=== PATIENT | female | born 1950 | race African-American/Black ===

== ENCOUNTER 2017-06-21 11:10 | Inpatient (IN) ==
[2017-06-21] MEDS ORDERED: DILTIAZEM 50 MG/10 ML VIAL IV STA (11:58)
[2017-06-21] MEDS ORDERED: DILTIAZEM INJ 100 MG in SODIUM CHLORIDE 0.9% 100 ML IV SCH (12:00)
[2017-06-21] MEDS ORDERED: DILTIAZEM 100 MG VIAL.ADD IV ONE (12:17)
[2017-06-21] MEDS ORDERED: SODIUM CHLORIDE 0.9% 100 ML IV ONE (12:17)
[2017-06-21] MEDS ORDERED: DILTIAZEM 50 MG/10 ML VIAL IV ONE (12:17)
[2017-06-21 12:18] LABS: Basophils # 0.1 10*3/uL (0.0-0.2); Basophils % 0.4 % (0.0-0.8); Eosinophils # 0.2 10*3/uL (0.0-0.87); Eosinophils % 1.6 % (0.00-10.9); Hematocrit 40.9 VOL% (35.7-47.0); Hemoglobin 12.8 GM/DL (12.0-16.0); Immature Granulocytes % 0.5 %; Immature Granulocytes Absolute 0.08 #; Lymphocytes # 1.3 10*3/uL (1.4-4.0); Lymphocytes % 9.1 % (21.3-54.2); Mean Corpuscular HGB Conc 31.3 GM/DL (32-36); Mean Corpuscular Hemoglobin 28 PG (27-34); Mean Corpuscular Volume 88.7 FL (87-102); Mean Platelet Volume 9.6 FL (9.6-12.0); Monocytes # 0.6 10*3/uL (0.11-0.8); Monocytes % 4.1 % (1.7-12.7); Neutrophils # 12.4 10*3/uL (1.4-7.4); Neutrophils % 84.3 % (38.7-73.9); Platelet Count 412 T/CUMM (130-400); Red Blood Count 4.61 MC/CUMM (3.8-5.5); Red Cell Distribution Width 14.1 % (9.3-17.3); White Blood Count 14.8 T/CUMM (4-12)
[2017-06-21 12:28] LABS: PT Patient Result 10.7 SECS; Partial Thromboplastin Time 23.8 SECS (0-40)
[2017-06-21 12:57] LABS: Alanine Aminotransferase 26 U/L (13-56); Albumin 4.1 G/DL (3.4-5.0); Alkaline Phosphatase 120 U/L (45-117); Aspartate Amino Transferase 29 U/L (0-37); Bilirubin,Total < 0.39 MG/DL (0.2-1.0); Blood Urea Nitrogen 15 MG/DL (7-18); Calcium 9.4 MG/DL (8.5-10.1); Glucose 160 MG/DL (74-106); Osmolality,Calculated 276.8 MOS/KG (273-304); Potassium 3.9 MMOL/L (3.5-5.1); Sodium 137 MMOL/L (136-145); Thyroid Stimulating Hormone 0.664 uIU/ml (0.358-3.74); Total Protein 8.3 G/DL (6.4-8.3); Troponin I Only < 0.015 NG/ML (0.00-0.045)
[2017-06-21 13:08] LABS: Barbiturates Screen,Urine Negative (Negative); Benzodiazepines Screen,Urine Negative (Negative); Cannabinoid Screen,Urine Negative (Negative); Opiate Screen,Urine Negative (Negative); Phencyclidine Screen,Urine Negative (Negative)
[2017-06-21] MEDS: VERAPAMIL 120 MG TABLET PO SCH ×2 (16:13→21:10)
[2017-06-22] MEDS: VERAPAMIL 80 MG TABLET PO SCH ×3 (08:47→22:02)
[2017-06-23 06:01] LABS: Calcium 8.5 MG/DL (8.5-10.1); Osmolality,Calculated 281.4 MOS/KG (273-304); Potassium 5.2 MMOL/L (3.5-5.1)
[2017-06-23] MEDS: VERAPAMIL 80 MG TABLET PO SCH ×3 (09:39→22:21)
[2017-06-24] MEDS ORDERED: MORPHINE 2 MG/1 ML SYRINGE IV STA (06:51)
[2017-06-24] MEDS ORDERED: MORPHINE 10 MG/1 ML VIAL ONE (06:52)
[2017-06-24] MEDS ORDERED: LORazepam 2 MG/1 ML VIAL IV ONE (07:00)
[2017-06-24] MEDS ORDERED: LORazepam 2 MG/1 ML VIAL IV PRN (07:49)
[2017-06-24] MEDS ORDERED: MORPHINE 10 MG/1 ML VIAL IV PRN (07:49)
[2017-06-24] MEDS: VERAPAMIL 80 MG TABLET PO SCH (08:08)
[2017-06-24 08:12] VITALS: BP 150/94
[2017-06-24] MEDS ORDERED: fentaNYL 25 MCG/HR PATCH TRANSDERM SCH (09:00)
== END 2017-06-24 12:36 | disposition expired | DRG 308 ==
LOC: N.ED 11:10 → SUATTDRO 13:57 → N.EDINP 13:57 → N.4E 16:55
PROVIDERS: ADMIT Internal Medicine Cardiovascular Disease; ATTEND Internal Medicine